=== PATIENT | female | born 1940 | race Caucasian/White ===

== ENCOUNTER → 2017-03-28 | Day surgery (SDC) | payer OTHER | END | disposition home or self-care (01) | LOC: ADM 03-19 09:15 → AMB-ENDOS 06:39 | DX: K92.1 Melena (principal); Z12.11 Encounter for screening for malignant neoplasm of colon; K57.30 Diverticulosis of large intestine without perforation or abscess without bleeding; K64.1 Second degree hemorrhoids ==

== ENCOUNTER 2017-04-29 08:58 | Outpatient (CLI) | payer OTHER | END 2017-04-29 09:11 | disposition home or self-care (01) | LOC: NUCLEAR 08:58 | DX: M81.0 Age-related osteoporosis without current pathological fracture (principal); M19.90 Unspecified osteoarthritis, unspecified site; M54.5 Low back pain | CPT/HCPCS: 78306; A9503 ==

== ENCOUNTER 2019-02-02 05:00 | Day surgery (SDC) | payer OTHER ==
[~2019-02-02 05:00] MED LIST: BUDEO.25; CIDAFLEX TABLE1 EACH; COZAAR50 MG; DICY20TA; DOLOGESIC 500-1 EACH; LIPITOR40 MG; NORVASC5 MG; OMEGA-31000 MG; PRILOSEC OTC20 MG; VITAMIN E400 UNI2
[2019-02-02] MEDS ORDERED: KEFLEX250 MG PO (09:23)
[2019-02-02] MEDS ORDERED: ULTRACET PO (09:24)
== END 2019-02-02 12:50 | disposition home or self-care (01) ==
LOC: CIR.AMB 05:00
DX: N81.11 Cystocele, midline (principal); N76.1 Subacute and chronic vaginitis

== ENCOUNTER 2019-03-08 00:53 | Emergency (ER) | payer OTHER ==
[~2019-03-08] VITALS: Ht 144.8 cm; Wt 55.3 kg
[~2019-03-08 00:53] MED LIST changes: +KEFLEX250 MG PO; +ULTRACET PO
[2019-03-08] MEDS ORDERED: VISTARIL50 MG PO (07:46)
== END 2019-03-08 12:56 ==
LOC: ER 00:53
DX: R53.81 Other malaise (principal); R11.0 Nausea; N39.0 Urinary tract infection, site not specified; F06.4 Anxiety disorder due to known physiological condition

== ENCOUNTER 2020-05-09 05:40 | Day surgery (SDC) | payer OTHER ==
[~2020-05-09 05:40] MED LIST changes: +VISTARIL50 MG PO
[2020-05-09] MEDS ORDERED: TRIMETHOPRIM100 MG PO (10:48)
[2020-05-09] MEDS ORDERED: ULTRACET PO (10:49)
== END 2020-05-09 16:10 | disposition home or self-care (01) ==
LOC: CIR.AMB 05:40
PROVIDERS: ATTEND Obstetrics & Gynecology Gynecology
DX: N81.11 Cystocele, midline (principal); Z20.822 Contact with and (suspected) exposure to COVID-19

== ENCOUNTER 2024-08-30 05:29 | Day surgery (SDC) | payer OTHER ==
[2024-08-12 15:32] VITALS: BP 150/71
[~2024-08-30] VITALS: Ht 152.4 cm; Wt 45.4 kg
[~2024-08-30 05:29] MED LIST changes: +TRIMETHOPRIM100 MG PO
[2024-08-30] MEDS ORDERED: DIBUCAINE 30 GM TUBE ONE (07:10)
[2024-08-30] MEDS ORDERED: BUPIVACAINE HCL/MPF 0.5% 30ML VIAL ONE (07:10)
[2024-08-30] MEDS ORDERED: POVIDONE-IODINE 118 ML BOTT TOP ONE (07:10)
[2024-08-30] MEDS ORDERED: HEMOSTATIC MATRIX 1 KIT KIT TOP ONE (07:10)
[2024-08-30] MEDS ORDERED: ERTAPENEM SODIUM 1,000 MG VIAL ONE (07:11)
[2024-08-30] MEDS ORDERED: LIDOCAINE HCL 1%/EPINEPHRINE 20ML VIAL IJ ONE (07:11)
[2024-08-30] MEDS ORDERED: INTESTINEX680 M1 PO (08:41)
[2024-08-30] MEDS ORDERED: TRAM1TAB98 PO (08:41)
== END 2024-08-30 14:05 | disposition home or self-care (01) ==
LOC: CIR.AMB 05:29
PROVIDERS: ATTEND Surgery
DX: K64.2 Third degree hemorrhoids (principal); K62.5 Hemorrhage of anus and rectum; Z88.2 Allergy status to sulfonamides; Z88.5 Allergy status to narcotic agent; Z88.8 Allergy status to other drugs, medicaments and biological substances